=== PATIENT | female | born 1985 | race Caucasian/White ===

== ENCOUNTER 2018-01-07 10:38 | Emergency (ER) | payer MEDICARE, OTHER ==
[2018-01-07 11:30] LABS: ADD MAN DIFF? NO
[2018-01-07 11:36] LABS: BASO % 0 % (0-3); EOS # 0.1 x10^3/uL (0.0-0.7); EOS % 2 % (0-3); HEMOGLOBIN 13.2 g/dL (12.0-15.5); LYMPH # 1.9 x10^3/uL (1.0-4.8); LYMPH % 24 % (24-48); MEAN CORPUSCULAR HEMOGLOBIN 29 pg (25-35); MEAN CORPUSCULAR HGB CONC 34 g/dL (31-37); MEAN CORPUSCULAR VOLUME 87 fL (79-100); MONO # 0.3 x10^3/uL (0.0-1.1); MONO % 4 % (0-9); NEUT # 5.5 x10^3uL (1.8-7.7); NEUT % 70 % (31-73); PLATELET COUNT 224 x10^3/uL (140-400); RED BLOOD COUNT 4.51 x10^6/uL (3.50-5.40); RED CELL DISTRIBUTION WIDTH 14.5 % (11.5-14.5)
[2018-01-07] MEDS: IV NORMAL SALINE 1000ML BAG 1,000 ML IV (11:38)
[2018-01-07] MEDS: DEXAMETHASONE SOD PHOS 20 MG/5 ML VIAL. IV (11:39)
[2018-01-07] MEDS: diphenhydrAMINE 50 MG/ML VIAL IVP (11:39)
[2018-01-07] MEDS: ONDANSETRON PF 4 MG/2 ML VIAL. IV (11:39)
[2018-01-07 11:41] LABS: URINE HCG POC HCG NEGATIVE (Negative)
[2018-01-07 11:43] LABS: ANION GAP 7 (6-14); BLOOD UREA NITROGEN 9 mg/dL (7-20); CALCIUM 8.5 mg/dL (8.5-10.1); CARBON DIOXIDE 29 mmol/L (21-32); CHLORIDE 106 mmol/L (98-107); CREATININE 0.7 mg/dL (0.6-1.0); GLUCOSE 100 mg/dL (70-99); POTASSIUM 4.1 mmol/L (3.5-5.1); SODIUM 142 mmol/L (136-145)
[2018-01-07 11:59] LABS: BARBITURATES NEG (NEG); BENZODIAZEPINES NEG (NEG); CANNABINOIDS POS (NEG); COCAINE NEG (NEG); METHADONE NEG (NEG); OPIATES NEG (NEG); PHENCYCLIDINE NEG (NEG)
[2018-01-07 12:00] LABS: AMPHETAMINE/METHAMPHETAMINE NEG (NEG); ETHANOL, URINE NEG (NEG)
== END 2018-01-07 13:12 | disposition home or self-care (01) ==
LOC: ER 10:38
DX: R51 Headache (principal); F41.9 Anxiety disorder, unspecified; F32.9 Major depressive disorder, single episode, unspecified; F12.10 Cannabis abuse, uncomplicated
CPT/HCPCS: 36415; 70450; 80048; 80307; 81025; 85025; 96361; 96374; 96375; 99285-25; J1100; J1200; J2405; J7030

== ENCOUNTER 2018-05-10 16:19 | Emergency (ER) | payer OTHER, MEDICARE ==
[2018-05-10 16:53] LABS: URINE HCG POC HCG NEGATIVE (Negative)
[2018-05-10 17:00] LABS: BILIRUBIN,URINE NEGATIVE (NEG); CLARITY,URINE CLEAR; COLOR,URINE YELLOW; GLUCOSE,URINE NEGATIVE (NEG); NITRITE,URINE NEGATIVE (NEG); PROTEIN,URINE NEGATIVE (NEG-TRACE)
[2018-05-10 17:17] LABS: BACTERIA,URINE MODERATE /HPF (0-FEW); SQUAMOUS EPITHELIAL CELL,UR MOD /LPF
[2018-05-10] MEDS: AZITHROMYCIN 250 MG TABLET. PO (17:35)
[2018-05-10] MEDS: metroNIDAZOLE 500 MG TABLET PO (17:35)
[2018-05-10] MEDS: cefTRIAXone IM 250 MG VIAL IM (17:43)
[2018-05-11 15:36] LABS: CHLAMYDIA PROBE Negative (Negative); GC PROBE Negative (Negative)
== END 2018-05-10 18:05 | disposition home or self-care (01) ==
LOC: ER 16:19
DX: N39.0 Urinary tract infection, site not specified (principal); F41.9 Anxiety disorder, unspecified; F32.9 Major depressive disorder, single episode, unspecified; Z90.49 Acquired absence of other specified parts of digestive tract
CPT/HCPCS: 76830; 76856; 81001; 81025; 87086; 87491; 87591; 96372; 99285-25; J0696; Q0111; Q0144

== ENCOUNTER 2018-11-22 12:03 | Emergency (ER) | payer SELFPAY ==
[~2018-11-22] VITALS: Ht 167.6 cm; Wt 108.9 kg
[~2018-11-22 12:03] MED LIST: ONDA4TAB10 SL; SULF1TAB24 PO; SUMA50TA3 PO
[2018-11-22 12:32] VITALS: BP 153/96
[2018-11-22 12:44] LABS: BILIRUBIN,URINE SMALL (NEG); CLARITY,URINE CLEAR; COLOR,URINE YELLOW; NITRITE,URINE NEGATIVE (NEG); PROTEIN,URINE NEGATIVE (NEG-TRACE)
[2018-11-22 12:53] LABS: BACTERIA,URINE MANY /HPF (0-FEW); SQUAMOUS EPITHELIAL CELL,UR MOD /LPF
[2018-11-22 12:54] LABS: RBC,URINE 0 /HPF (0-2)
[2018-11-22] MEDS ORDERED: AZITHROMYCIN 250 MG TABLET. PO ONE (13:15)
[2018-11-22] MEDS ORDERED: cefTRIAXone IM 250 MG VIAL IM ONE (13:15)
[2018-11-22] MEDS ORDERED: NITR100C PO (13:41)
[2018-11-22] MEDS ORDERED: METR500T PO (13:41)
--- NOTE | 2018-11-22 13:41 | PHYS DOC ---
Past Medical History Past Medical History: Anxiety, Depression Additional Past Medical Histor: ulcers Past Surgical History: Cholecystectomy Alcohol Use: Occasionally Drug Use: Marijuana Adult General Chief Complaint Chief Complaint: SEXUALLY TRANSMITTED DISEASE HPI HPI Patient is a 33 year old [f__sex] who presents with [] Review of Systems Review of Systems Constitutional: Denies fever or chills [] Eyes: Denies change in visual acuity, redness, or eye pain [] HENT: Denies nasal congestion or sore throat [] Respiratory: Denies cough or shortness of breath [] Cardiovascular: No additional information not addressed in HPI [] GI: Denies abdominal pain, nausea, vomiting, bloody stools or diarrhea [] : Denies dysuria or hematuria [] Musculoskeletal: Denies back pain or joint pain [] Integument: Denies rash or skin lesions [] Neurologic: Denies headache, focal weakness or sensory changes [] Endocrine: Denies polyuria or polydipsia [] All other systems were reviewed and found to be within normal limits, except as documented in this note. Current Medications Current Medications Current Medications Medications (Trade) Dose Ordered Sig/Meredith Start Time Stop Time Status Last Admin Dose Admin Azithromycin (Zithromax) 1,000 mg 1X ONCE 11/22/18 13:15 11/22/18 13:16 DC Ceftriaxone Sodium (Rocephin Im) 250 mg 1X ONCE 11/22/18 13:15 11/22/18 13:16 DC Allergies Allergies Allergies Coded Allergies Type Severity Reaction Last Updated Verified No Known Drug Allergies 01/07/18 No Physical Exam Physical Exam Constitutional: Well developed, well nourished, no acute distress, non-toxic appearance, obese. [] HENT: Normocephalic, atraumatic, bilateral external ears normal, nose normal. [] Eyes: conjunctiva normal, no discharge. [] Neck: Normal range of motion, no stridor. [] Pelvic Exam: Global Risk Management Director present Thelma RN Abdomen: Nontender External Genitalia: Normal Skin Speculum: Normal vaginal mucosa, normal cervix, cervix non-friable, large amount of pale yellow malodorous discharge present Bimanual: No adnexal masses or tenderness, No CMT Skin: Warm, dry, no erythema, no rash. [] Extremities: No cyanosis, ROM intact Neurologic: Alert and oriented X 3, normal motor function, normal sensory function, no focal deficits noted. [] Psychologic: Affect normal, judgement normal, mood normal. [] Current Patient Data Vital Signs Vital Signs Date Time Temp Pulse Resp B/P (MAP) Pulse Ox O2 Delivery O2 Flow Rate FiO2 11/22/18 12:32 98.4 66 18 153/96 (115) 100 Room Air 98.4 Lab Values Laboratory Tests Test 11/22/18 12:15 11/22/18 12:30 Urine Collection Type Unknown Urine Color Yellow Urine Clarity Clear Urine pH 6.0 Urine Specific [place] >=1.030 Urine Protein Negative mg/dL (NEG-TRACE) Urine Glucose (UA) Negative mg/dL (NEG) Urine Ketones (Stick) Negative mg/dL (NEG) Urine Blood Negative (NEG) Urine Nitrite Negative (NEG) Urine Bilirubin Small (NEG) Urine Urobilinogen Dipstick 1.0 mg/dL (0.2 mg/dL) Urine Leukocyte Esterase Large (NEG) Urine RBC 0 /HPF (0-2) Urine WBC 11-20 /HPF (0-4) Urine Squamous Epithelial Cells Mod /LPF Urine Bacteria Many /HPF (0-FEW) Urine Mucus Mod /LPF POC Urine HCG, Qualitative Hcg negative (Negative) Microbiology 11/22/18 Wet Prep - Final, Complete EKG EKG [] Radiology/Procedures Radiology/Procedures [] Course & Med Decision Making Course & Med Decision Making Pertinent Labs and Imaging studies reviewed. (See chart for details) [] Dragon Disclaimer Dragon Disclaimer This electronic medical record was generated, in whole or in part, using a voice recognition dictation system. Departure Departure Impression: Primary Impression: Urinary tract infection Additional Impressions: Bacterial vaginosis Contact with and (suspected) exposure to infections with a predominantly sexual mode of transmission Referrals: NO PCP (PCP) Patient Instructions: Bacterial Vaginosis, [id number], Sexually Transmitted Disease, [id number], Urinary Tract Infection, [id number] Additional Instructions: Fill prescription(s) and use as directed. Avoid bladder irritants such as caffeine, carbonation, and spicy foods. Increase clear fluids. You were treated prophylactically for a suspected sexually transmitted disease, avoid having intercourse until the results of gonorrhea and chlamydia testing are available. These results will not be available for 48 hours. If one or both of these tests is positive, you needs to refrain from intercourse for approximately 2 weeks following the treatment of any current partners. Follow up with your primary care doctor if symptoms persist, return to the ER if symptoms worsen. Scripts Metronidazole (FLAGYL) 500 Mg Tablet 1 TAB PO BID for 7 Days, #14 TAB 0 Refills Prov: YESENIA FRIED APRN 11/22/18 Nitrofurantoin Macrocrystal (NITROFURANTOIN) 100 Mg Capsule 1 CAP PO BID, #14 CAP 0 Refills Prov: YESENIA FRIED APRN 11/22/18 Problem Qualifiers Primary Impression: Urinary tract infection Urinary tract infection type: site unspecified Hematuria presence: without hematuria Qualified Codes: N39.0 - Urinary tract infection, site not specified YESENIA FRIED APRN Nov 22, 2018 13:41
== END 2018-11-22 14:01 | disposition home or self-care (01) ==
LOC: ER 12:03
DX: N39.0 Urinary tract infection, site not specified (principal); N76.0 Acute vaginitis; B96.89 Other specified bacterial agents as the cause of diseases classified elsewhere; Z20.2 Contact with and (suspected) exposure to infections with a predominantly sexual mode of transmission; F41.9 Anxiety disorder, unspecified; F32.9 Major depressive disorder, single episode, unspecified; Z90.49 Acquired absence of other specified parts of digestive tract
CPT/HCPCS: 81001; 81025; 96372; 99283; J0696; Q0111; Q0144

== ENCOUNTER 2019-10-20 16:55 | Emergency (ER) | payer MEDICAID, MEDICARE ==
[~2019-10-20] VITALS: Ht 167.6 cm; Wt 111.6 kg
[~2019-10-20 16:55] MED LIST changes: +METR500T PO; +NITR100C PO
[2019-10-20 17:11] VITALS: BP 143/74
[2019-10-20 17:15] LABS: BILIRUBIN,URINE NEGATIVE (NEG); CLARITY,URINE CLOUDY; COLOR,URINE YELLOW; NITRITE,URINE NEGATIVE (NEG); PROTEIN,URINE NEGATIVE (NEG-TRACE); UROBILINOGEN,URINE 0.2 mg/dL (0.2 mg/dL)
[2019-10-20 17:27] LABS: SQUAMOUS EPITHELIAL CELL,UR MOD /LPF
[2019-10-20 17:28] LABS: AMORPHOUS SEDIMENT,UR PRESENT /HPF; BACTERIA,URINE FEW /HPF (0-FEW)
[2019-10-20] MEDS ORDERED: cefTRIAXone IM 250 MG VIAL IM ONE (18:15)
[2019-10-20] MEDS ORDERED: AZITHROMYCIN 250 MG TABLET. PO ONE (18:15)
--- NOTE | 2019-10-20 18:32 | PHYS DOC ---
Past Medical History Past Medical History: Anxiety, Depression Additional Past Medical Histor: ulcers (YESENIA FRIED APRN) Past Surgical History: Cholecystectomy (YESENIA FRIED APRN) Alcohol Use: Occasionally Drug Use: Marijuana (YESENIA FRIED APRN) Adult General Chief Complaint Chief Complaint: SEXUALLY TRANSMITTED DISEASE [facility] HPI Patient is a 34 year old female who presents to the emergency Department with concerns of sexually transmitted infection. She states that she has an increased amount of vaginal discharge. She denies any of vaginal odor, vaginal bleeding, lower abdominal pain, nausea, vomiting, diarrhea, fever, dysuria or hematuria. Patient states she has had some increased urinary frequency. She denies any fever, cough, or rash. Patient states she has been contacted by 5 different women who reports that they have had intercourse recently with her partner. All other ROS is neg unless otherwise noted in HPI. (YESENIA FRIED APRN) Review of Systems Review of Systems See Above (YESENIA FRIED APRN) Current Medications Current Medications Current Medications Medications (Trade) Dose Ordered Sig/Meredith Start Time Stop Time Status Last Admin Dose Admin Azithromycin (Zithromax) 1,000 mg 1X ONCE 10/20/19 18:15 10/20/19 18:16 DC 10/20/19 18:19 1,000 MG Ceftriaxone Sodium (Rocephin Im) 250 mg 1X ONCE 10/20/19 18:15 10/20/19 18:16 DC 10/20/19 18:18 250 MG (JAMES BRISCOE DO) Allergies Allergies Allergies Coded Allergies Type Severity Reaction Last Updated Verified No Known Drug Allergies 01/07/18 No (JAMES BRISCOE DO) Physical Exam Physical Exam See Above Constitutional: Well developed, well nourished, no acute distress, non-toxic appearance, OBESE HENT: Normocephalic, atraumatic, bilateral external ears normal, nose normal. Eyes: PERRLA, EOMI, conjunctiva normal, no discharge. Neck: Normal range of motion, supple, no stridor. Cardiovascular: Heart rate regular rhythm Lungs & Thorax: Respirations even and unlabored, no retractions, no respiratory distress Pelvic Exam: Traffic Routing Engineer present YARON Garcia Abdomen: Nontender, soft External Genitalia: Normal Skin Speculum: Normal vaginal mucosa; thin, frothy, yellow cervical discharge Bimanual: No adnexal masses or tenderness, No CMT Skin: Warm, dry, no erythema, no rash. Back: NO TENDERNESS Extremities: No cyanosis, ROM intact, no edema. Neurologic: Alert and oriented X 3, no focal deficits noted. Psychologic: Affect normal, judgement normal, mood normal. (YESENIA FRIED APRN) Current Patient Data Vital Signs Vital Signs Date Time Temp Pulse Resp B/P (MAP) Pulse Ox O2 Delivery O2 Flow Rate FiO2 10/20/19 17:11 98.1 79 16 143/74 (97) 99 Room Air 98.1 (JAMES BRISCOE DO) Lab Values Laboratory Tests Test 10/20/19 17:01 10/20/19 17:11 10/20/19 17:45 Urine Collection Type Unknown Urine Color Yellow Urine Clarity Cloudy Urine pH 7.0 Urine Specific [place] 1.025 Urine Protein Negative mg/dL (NEG-TRACE) Urine Glucose (UA) Negative mg/dL (NEG) Urine Ketones (Stick) Negative mg/dL (NEG) Urine Blood Negative (NEG) Urine Nitrite Negative (NEG) Urine Bilirubin Negative (NEG) Urine Urobilinogen Dipstick 0.2 mg/dL (0.2 mg/dL) Urine Leukocyte Esterase Moderate (NEG) Urine RBC 1-2 /HPF (0-2) Urine WBC 5-10 /HPF (0-4) Urine Squamous Epithelial Cells Mod /LPF Urine Amorphous Sediment Present /HPF Urine Bacteria Few /HPF (0-FEW) Urine Mucus Marked /LPF POC Urine HCG, Qualitative Hcg negative (Negative) Chlamydia DNA Probe Negative (Negative) Neisseria gonorrhoeae DNA Probe Negative (Negative) Microbiology 10/20/19 Wet Prep - Final, Complete 10/20/19 Urine Culture - Final, Complete 10/20/19 Urine Culture Result 1 (MIGUELITO) - Final, Complete (JAMES BRISCOE DO) EKG EKG [] (YESENIA FRIED APRN) Radiology/Procedures Radiology/Procedures [] (YESENIA FRIED APRN) Course & Med Decision Making Course & Med Decision Making Pertinent Labs and Imaging studies reviewed. (See chart for details) Patient was treated prophylactically with 250 mg of IM Rocephin, and 1 g of PO Zithromax. Patient was instructed to avoid having intercourse until the results of gonorrhea and chlamydia testing are available, patient was notified that these results would not be available for 48 hours. If one or both of these tests is positive, patient needs to refrain from intercourse for approximately 1 week following the treatment of any current partners. Patient verbalized an understanding of home care, medications, follow-up, and return to ED instructions and was in agreement with the plan of care. [] (YESENIA FRIED APRN) Dragon Disclaimer Dragon Disclaimer This electronic medical record was generated, in whole or in part, using a voice recognition dictation system. (YESENIA FRIED APRN) Departure Departure Impression: Primary Impression: Contact with and (suspected) exposure to infections with a predominantly sexual mode of transmission Additional Impressions: Concern about STD in female without diagnosis Purulent vaginal discharge Disposition: HOME, SELF-CARE Condition: STABLE Referrals: NO PCP (PCP) Patient Instructions: Sexually Transmitted Disease, [id number] Additional Instructions: Recommend that you go to your local health department for comprehensive sexually transmitted disease testing. You have been treated for a suspected gonorrhea and chlamydia. Avoid having intercourse until the results of gonorrhea and chlamydia testing are available, these results will not be available for 48 hours. If one or both of these tests is positive, you need to refrain from intercourse for approximately 1 week following the treatment of any current partners. Follow-up with your primary care doctor if symptoms persist, return to ER symptoms worsen. Attending Signature Attending Signature I have reviewed the PA/PUBLIC HEALTH PROFESSOR's note and plan of care. I was available for consultation as needed at all times during the patient's visit in the emergency department. I agree with the clinical impression, plan and disposition. (JAMES BRISCOE DO) Problem Qualifiers YESENIA FRIED APRN Oct 20, 2019 18:32 JAMES BRISCOE DO Oct 27, 2019 19:30
[2019-10-23 21:07] LABS: GC PROBE Negative (Negative)
== END 2019-10-20 19:13 | disposition home or self-care (01) ==
LOC: ER 16:55
DX: Z20.2 Contact with and (suspected) exposure to infections with a predominantly sexual mode of transmission (principal); N89.8 Other specified noninflammatory disorders of vagina; Z11.59 Encounter for screening for other viral diseases
CPT/HCPCS: 81001; 81025; 87086; 87491; 87591; 96372; 99284; J0696; Q0111; Q0144

== ENCOUNTER 2019-10-30 12:37 | Emergency (ER) | payer MEDICARE, MEDICAID ==
[~2019-10-30] VITALS: Ht 167.6 cm; Wt 111.6 kg
[2019-10-30 13:22] VITALS: BP 166/85
[2019-10-30 14:28] LABS: BILIRUBIN,URINE NEGATIVE (NEG); CLARITY,URINE CLEAR; COLOR,URINE YELLOW; NITRITE,URINE NEGATIVE (NEG); PROTEIN,URINE NEGATIVE (NEG-TRACE); UROBILINOGEN,URINE 0.2 mg/dL (0.2 mg/dL)
[2019-10-30 14:35] LABS: BACTERIA,URINE FEW /HPF (0-FEW); RBC,URINE 0 /HPF (0-2); SQUAMOUS EPITHELIAL CELL,UR MANY /LPF; WBC,URINE >40 /HPF (0-4)
--- NOTE | 2019-10-30 14:40 | PHYS DOC ---
Past Medical History Past Medical History: Anxiety, Depression, Other Additional Past Medical Histor: ulcers Past Surgical History: Cholecystectomy Alcohol Use: Occasionally Drug Use: Marijuana Adult General Chief Complaint Chief Complaint: VAGINAL PROBLEM HPI HPI Patient is a 34 year old female who presents with yellow discharge been ongoing for several days, and dysuria. Denies fever, denies vaginal bleeding. Reports Vaginal itching. Complete ROS were reviewed and found to be within normal limits, except as documented in the HPI Current Medications Current Medications Current Medications Medications (Trade) Dose Ordered Sig/Meredith Start Time Stop Time Status Last Admin Dose Admin Azithromycin (Zithromax) 1,000 mg 1X ONCE 10/30/19 15:00 10/30/19 15:01 DC 10/30/19 14:58 1,000 MG Ceftriaxone Sodium (Rocephin Im) 250 mg 1X ONCE 10/30/19 15:00 10/30/19 15:01 DC 10/30/19 14:58 250 MG Allergies Allergies Allergies Coded Allergies Type Severity Reaction Last Updated Verified No Known Drug Allergies 01/07/18 No Physical Exam Physical Exam Constitutional: Well developed, well nourished, no acute distress, non-toxic appearance. [] HENT: Normocephalic, atraumatic, bilateral external ears normal, oropharynx moist, no oral exudates, nose normal. [] Eyes: PERRLA, EOMI, conjunctiva normal, no discharge. [] Neck: Normal range of motion, no tenderness, supple, no stridor. [] Cardiovascular:Heart rate regular rhythm, no murmur [] Lungs & Thorax: Bilateral breath sounds clear to auscultation [] Abdomen: Bowel sounds normal, soft, no tenderness, no masses, no pulsatile masses. [] Skin: Warm, dry, no erythema, no rash. [] Neurologic: Alert and oriented X 3, normal motor function, normal sensory function, no focal deficits noted. [] Psychologic: Affect normal, judgement normal, mood normal. [] Pelvic Exam: External exam is normal and without rash, No CMT, OS is closed, yellow copious discharge, uterus NTTP, No adnexal masses or tenderness noted Current Patient Data Vital Signs Vital Signs Date Time Temp Pulse Resp B/P (MAP) Pulse Ox O2 Delivery O2 Flow Rate FiO2 10/30/19 13:22 98.6 62 12 166/85 (112) 99 Room Air 98.6 Lab Values Laboratory Tests Test 10/30/19 14:19 10/30/19 14:24 Urine Collection Type Void Urine Color Yellow Urine Clarity Clear Urine pH 6.0 Urine Specific [place] 1.015 Urine Protein Negative mg/dL (NEG-TRACE) Urine Glucose (UA) Negative mg/dL (NEG) Urine Ketones (Stick) Negative mg/dL (NEG) Urine Blood Negative (NEG) Urine Nitrite Negative (NEG) Urine Bilirubin Negative (NEG) Urine Urobilinogen Dipstick 0.2 mg/dL (0.2 mg/dL) Urine Leukocyte Esterase Large (NEG) Urine RBC 0 /HPF (0-2) Urine WBC >40 /HPF (0-4) Urine Squamous Epithelial Cells Many /LPF Urine Bacteria Few /HPF (0-FEW) Urine Mucus Slight /LPF POC Urine HCG, Qualitative Hcg negative (Negative) Microbiology 10/30/19 Wet Prep - Final, Complete EKG EKG [] Radiology/Procedures Radiology/Procedures [] Course & Med Decision Making Course & Med Decision Making Pertinent Labs and Imaging studies reviewed. (See chart for details) Will get UA, Pelvic, Preg, and STD testing. Treated for GC/Chlam Preg neg Wet Prep shows Trichomoniasis. Will place on Flagyl. UA shows leukocytes. Will place on Keflex. Dragon Disclaimer Dragon Disclaimer This electronic medical record was generated, in whole or in part, using a voice recognition dictation system. Departure Departure Impression: Primary Impression: Concern about STD in female without diagnosis Additional Impressions: Urinary tract infection Trichomoniasis Disposition: 01 HOME, SELF-CARE Condition: STABLE Referrals: NO PCP (PCP) Patient Instructions: Sexually Transmitted Disease, Trichomoniasis Additional Instructions: Thank you for visiting [facility]. We appreciate you trusting us with your care. If any additional problems come up don't hesitate to return to visit us. Please follow up with your primary care provider so they can plan additional care if needed and know about the problem that you had. If symptoms worsen come back to the Emergency Department. Any concerning symptoms that start such as chest pain, shortness of air, weakness or numbness on one side of the body, running high fevers or any other concerning symptoms return to the ER. You have been tested for sexually transmitted diseases in the ER today. Some of your results will not come back for 48-72 hours. If positive, you will get a call letting you know. If you are positive for gonorrhea or chlamydia you have been treated. If they are positive please notify your partner. Please avoid sexual intercourse for 2 weeks to avoid passing the infection back and forth. You have been prescribed an antibiotic today to help fight your infection. Please take all of the antibiotic as directed. If after 48 hours the infection is not improving, please return for more care. If the infection worsens, return to ER for additional care. Scripts Cephalexin (KEFLEX) 500 Mg Capsule 1 CAP PO BID for 7 Days, #14 CAP 0 Refills Prov: JAMES PIERRE APRN 10/30/19 Metronidazole (FLAGYL) 500 Mg Tablet 1 TAB PO BID for 7 Days, #14 TAB Prov: JAMES PIERRE APRN 10/30/19 Problem Qualifiers Additional Impressions: Urinary tract infection Urinary tract infection type: acute cystitis Hematuria presence: without hematuria Qualified Codes: N30.00 - Acute cystitis without hematuria JAMES PIERRE APRN Oct 30, 2019 14:40
[2019-10-30] MEDS ORDERED: AZITHROMYCIN 250 MG TABLET. PO ONE (15:00)
[2019-10-30] MEDS ORDERED: cefTRIAXone IM 250 MG VIAL IM ONE (15:00)
[2019-10-30] MEDS ORDERED: METR500T PO (15:27)
[2019-10-30] MEDS ORDERED: CEPH-264 PO (15:27)
[2019-10-31 20:08] LABS: GC PROBE Negative (Negative)
== END 2019-10-30 15:29 | disposition home or self-care (01) ==
LOC: ER 12:37
DX: N30.00 Acute cystitis without hematuria (principal); A59.9 Trichomoniasis, unspecified; Z20.2 Contact with and (suspected) exposure to infections with a predominantly sexual mode of transmission; F41.9 Anxiety disorder, unspecified; F32.9 Major depressive disorder, single episode, unspecified; Z90.49 Acquired absence of other specified parts of digestive tract; Z11.59 Encounter for screening for other viral diseases
CPT/HCPCS: 81001; 81025; 87086; 87491; 87591; 96372; 99284; J0696; Q0111; Q0144